=== PATIENT | female | born 1970 | race Caucasian/White ===

== ENCOUNTER → 2017-03-31 | Outpatient (CLI) | payer OTHER ==
[~2017-03-31] MED LIST: AMLO2.5T PO; CITA10TA4 PO; LEVA750T PO; LEVO175T2 PO; LISI10TA PO
[2017-03-31 08:12] LABS: HEMATOCRIT 38.5 % (35.0-46.0); MEAN CORPUSCULAR HGB CONC 32.6 % (32.0-36.0); PLATELET COUNT 282 TH/MM3 (150-450); RED BLOOD COUNT 4.47 MIL/MM3 (4.00-5.30); RED CELL DISTRIBUTION WIDTH 14.3 % (11.6-17.2); REVIEW FLAG FINAL; WHITE BLOOD COUNT 8.8 TH/MM3 (4.0-11.0)
[2017-03-31 08:31] LABS: MICRO ALBUMIN RANDOM URINE RAW 6.8 MG/L (0.0-30.0)
[2017-03-31 08:38] LABS: ALT (GPT) 37 U/L (10-53); ANION GAP 6 MEQ/L (5-15); AST (GOT) 21 U/L (15-37); BLOOD UREA NITROGEN 11 MG/DL (7-18); CHLORIDE 105 MEQ/L (98-107); GLOMERULAR FILTRATION RATE 66 ML/MIN (>89); GLUCOSE,FASTING 109 MG/DL (74-99); POTASSIUM 3.7 MEQ/L (3.5-5.1); SODIUM (NA) 140 MEQ/L (136-145)
[2017-03-31 08:46] LABS: ALKALINE PHOSPHATASE 77 U/L (45-117); FREE T4 1.04 NG/DL (0.76-1.46); HDL CHOLESTEROL 26.2 MG/DL (40.0-60.0); TOTAL BILIRUBIN ADULT 0.2 MG/DL (0.2-1.0)
[2017-03-31 08:47] LABS: WESTERGREN SEDIMENTATION RATE 27 mm/hr (0-20)
== END ==
LOC: CLAB 07:36
DX: I10 Essential (primary) hypertension (principal); M35.9 Systemic involvement of connective tissue, unspecified; E03.9 Hypothyroidism, unspecified; E55.9 Vitamin D deficiency, unspecified; R73.01 Impaired fasting glucose
CPT/HCPCS: 36415; 80053; 80061; 82043; 82306; 84439; 84443; 85027; 85652